=== PATIENT | female | born 1990 | race American Indian/Alaskan Native ===

== ENCOUNTER 2020-12-03 17:09 | Emergency (ER) | payer SELFPAY ==
--- NOTE | 2020-12-03 18:17 | Emergency Department Report ---
ED Medical Clearance HPI - General Chief complaint: Medical Clearance Stated complaint: BLOOD TEST Time Seen by Provider: 12/03/20 18:05 Source: patient Mode of arrival: Ambulatory - History of Present Illness Initial comments: This is a 30-year-old female nontoxic, well nourished in appearance, no acute signs of distress presents to the ED for a blood test. Patient stated she missed her menstrual cycle this month and wants a test. Patient did take a test at home from urine and was negative twice. Patient otherwise denies any symptoms or complaints. Patient denies any vaginal bleeding, abdominal pain, pelvic pain, nausea, vomiting, chest pain, shortness of breath, headache or stiff neck. Patient denies any allergies or significant past medical history. Traumatic Symptoms: denies traumatic injury Associated Symptoms: denies other symptoms. denies: chest pain, shortness of breath, palpitations, diaphoresis, confusion, cough, fever/chills, headaches, anorexia, malaise, nausea/vomiting, rash, seizure, syncope, weakness Treatments Prior to Arrival: none Allergies/Adverse reactions: Allergies Allergy/AdvReac Type Severity Reaction Status Date / Time No Known Allergies Allergy Unverified 12/03/20 17:12 ED Review of Systems ROS: Stated complaint: BLOOD TEST Other details as noted in HPI Comment: All other systems reviewed and negative Constitutional: denies: chills, fever Eyes: denies: eye pain, eye discharge, vision change ENT: denies: ear pain, throat pain Respiratory: denies: cough, shortness of breath, wheezing Cardiovascular: denies: chest pain, palpitations Endocrine: no symptoms reported Gastrointestinal: denies: abdominal pain, nausea, diarrhea Genitourinary: denies: urgency, dysuria, discharge Musculoskeletal: denies: back pain, joint swelling, arthralgia Skin: denies: rash, lesions Neurological: denies: headache, weakness, paresthesias Psychiatric: denies: anxiety, depression Hematological/Lymphatic: denies: easy bleeding, easy bruising ED Past Medical Hx - Past Medical History Previous Medical History?: No - Surgical History Past Surgical History?: No ED Physical Exam - General Limitations: No Limitations General appearance: alert, in no apparent distress - Head Head exam: Present: atraumatic, normocephalic - Eye Eye exam: Present: normal appearance - Neck Neck exam: Present: full ROM - Respiratory Respiratory exam: Absent: respiratory distress - Cardiovascular Cardiovascular Exam: Present: regular rate - GI/Abdominal GI/Abdominal exam: Present: soft, normal bowel sounds. Absent: distended, tenderness, guarding, rebound, rigid, diminished bowel sounds - Extremities Exam Extremities exam: Present: full ROM - Back Exam Back exam: Present: full ROM - Neurological Exam Neurological exam: Present: alert, oriented X3, normal gait - Psychiatric Psychiatric exam: Present: normal affect, normal mood - Skin Skin exam: Present: warm, dry, intact, normal color. Absent: rash ED Course Vital Signs 12/03/20 17:13 Temperature 98.9 F Pulse Rate 103 H Respiratory 16 Rate Blood Pressure 127/81 O2 Sat by Pulse 97 Oximetry - Reevaluation(s) Reevaluation #1: 12/03/20 18:16 Patient is speaking in full sentences with no signs of distress noted. ED Medical Decision Making - Medical Decision Making 22-year-old female that presents with testing. Patient stable and was examined by me. Vital signs are stable. A physical exam is unremarkable. Patient was instructed to follow-up with a OBGYN doctor in 3-5 days or if symptoms worsen and continue return to emergency room as soon as possible. At time of discharge, the patient does not seem toxic or ill in appearance. No acute signs of distress noted. Patient agrees to discharge treatment plan of care. No further questions noted by the patient. ED Disposition Clinical Impression: Encounter for test Qualifiers: test result: result unknown Qualified Code(s): Z32.00 - Encounter for test, result unknown Disposition: DC- TO HOME OR SELFCARE Is pt being admited?: No Does the pt Need Aspirin: No Condition: Stable Additional Instructions: Follow-up with a OBGYN doctor in 3-5 days or if symptoms worsen and continue return to emergency room as soon as possible. Referrals: PRIMARY CARE, [Referring] - 3-5 Days JACKIE TORRES MD [Staff Physician] - 3-5 Days [facility] [Provider Group] - 3-5 Days [facility] [Provider Group] - 3-5 Days Time of Disposition: 18:17
== END 2020-12-03 18:23 | disposition home or self-care (01) ==
LOC: ED 17:09
DX: Z32.00 Encounter for pregnancy test, result unknown (principal)
CPT/HCPCS: 99281